=== PATIENT | female | born 1980 | race Caucasian/White ===

== ENCOUNTER 2018-07-20 20:30 | Emergency (ER) | payer SELFPAY ==
[~2018-07-20] VITALS: Ht 154.9 cm; Wt 81.2 kg
[2018-07-20] MEDS ORDERED: AUGMENTIN 875875 MG PO (21:12)
== END 2018-07-20 21:29 | disposition home or self-care (01) ==
LOC: ED 20:30
DX: S91.312A Laceration without foreign body, left foot, initial encounter (principal); S90.872A Other superficial bite of left foot, initial encounter; W54.0XXA Bitten by dog, initial encounter; Y93.89 Activity, other specified; Y92.89 Other specified places as the place of occurrence of the external cause; Y99.8 Other external cause status